=== PATIENT | male | born 1955 | race Caucasian/White ===

== ENCOUNTER → 2019-10-01 07:42 | Outpatient (CLI) | payer OTHER, SELFPAY ==
--- NOTE | 2019-10-01 07:49 | US_ITS ---
STUDY: ABDOMINAL ULTRASOUND - RIGHT UPPER QUADRANT REASON FOR VISIT: Male, 64 years old elevated liver function tests. TECHNIQUE: Ultrasound evaluation of the right upper quadrant was performed with real-time and static grover-scale imaging. TECHNICAL QUALITY: Adequate. COMPARISON: None. FINDINGS: Liver: The liver measures 14.7 cm. There is increased echogenicity consistent with fatty infiltration. The bile ducts are within normal limits. There is hepatic color flow. The direction of portal flow is hepatopetal. There is no demonstrated mass lesion. Gallbladder: Normal distended gallbladder. The gallbladder wall measures 2.0 mm. There is a negative sonographic Keys's sign. There is no pericholecystic fluid. There are multiple echogenic structures within the gallbladder, consistent with multiple gallstones. Is also evidence of multiple small gallbladder polyps. Common Bile Duct (C.B.D.): The common bile duct measures 3.7 mm. Pancreas: Normal size of the head, body and tail of the pancreas. There is normal echogenicity of the pancreas. There is no demonstrated pancreatic mass or cyst. Right Kidney: Normal size of the right kidney. The right kidney measures 11.6 cm x 5.1 cm x 6.1 cm. Normal renal cortex. The right cortex measures 1.9 cm. There is no demonstrated renal mass or cyst. There is no right hydronephrosis. US/Liver IMPRESSION: Fatty infiltration of the liver. Multiple gallstones. Multiple small gallbladder polyps. Electronically Signed: Mauro Florentino, at 9:46 EST , Service support ,
== END ==
PROVIDERS: Family Provider Nurse Practitioner; PCP Nurse Practitioner; Referring Provider Nurse Practitioner; Visit Provider Nurse Practitioner
DX: K76.0 Fatty (change of) liver, not elsewhere classified (principal); K80.20 Calculus of gallbladder without cholecystitis without obstruction; R74.8 Abnormal levels of other serum enzymes
CPT/HCPCS: 76705

== ENCOUNTER 2020-10-30 08:58 | Inpatient (IN) | payer OTHER, SELFPAY ==
[2020-10-30] VITALS (9 sets, daily range): BP systolic 122–152; BP diastolic 75–99; PULSE 67–102; RESP 16–24; TEMP 36.5–38.7; O2SAT 85–99; BMI 27.4; BMI 26.7
--- NOTE | 2020-10-30 09:13 | EKG12_ITS ---
Test Reason : SOB Blood Pressure : / mmHG Vent. Rate : 092 BPM Atrial Rate : 092 BPM P-R Int : 148 ms QRS Dur : 078 ms QT Int : 352 ms P-R-T Axes : 017 -07 016 degrees QTc Int : 435 ms Normal sinus rhythm Minimal voltage criteria for LVH, may be normal variant Borderline ECG Confirmed by BRIT GONSALEZ, DEV ([id number]), movie editor UZMA BRADY ([id number]) on 11/04/2020 9:17:22 AM Referred By: DOROTA Confirmed By:DEV PEREA MD
--- NOTE | 2020-10-30 09:15 | NURSING ---
NO OLD EKGS
--- NOTE | 2020-10-30 09:16 | ED.VIS.GEN ---
History of Present Illness Informant: Patient Onset: Days Narrative: 65 year-old male with PMH HLD, GERD presents with dyspnea on exertion. He is COVID positive and on day 11 of symptoms. He still has a dry cough. Over the last several days he has had worsening dyspnea on exertion and orthopnea. Denies chest pain or shortness of breath at rest. Today he felt warm but is not sure if he had a fever. All his other Covid symptoms have resolved. He saw his PCP who sent him to the ED. He does not not wear oxygen at baseline. He has no cardiopulmonary history. Denies nausea, vomiting, chest pain, abdominal pain, diarrhea, or leg pain or swelling. <Veronica Weaver - Last Filed: 10/30/20 11:47> <Skip Herrera - Last Filed: 10/30/20 12:32> Chief Complaint: Shortness of Breath Past Medical History Past Medical History: - - Hyperlipidemia, GERD Lives: - <Veronica Weaver - Last Filed: 10/30/20 11:47> <Skip Herrera - Last Filed: 10/30/20 12:32> - Allergies and Home Meds Allergies/Adverse Reactions: Allergies Sulfa (Sulfonamide Antibiotics) Allergy (Verified 10/30/20 09:53) PT UNSURE OF REACTION Review of Systems General: Denies: Chills, Fever, Sweats Eyes: Denies: Visual changes - bilaterally, Diplopia ENT: Denies: Rhinorrhea, Sore throat Cardiovascular: Denies: Chest pain, Palpitations, Heart racing Respiratory: Reports: Dyspnea, Cough, Dyspnea on exertion, Orthopnea. Denies: Sputum, Paroxysmal nocturnal dyspnea Gastrointestinal: Denies: Abdominal pain, Nausea, Vomiting, Diarrhea, Melena, Hematochezia Genitourinary: Denies: Dysuria, Hematuria, Frequency Musculoskeletal: Denies: Back pain, Extremity Pain Skin: Denies: Rash, Wounds Neurological: Denies: Headache, Weakness, Numbness <Veronica Weaver - Last Filed: 10/30/20 11:47> Physical Exam Vital Signs/Narrative: Vital Signs Temp Pulse Resp BP Pulse Ox 10/30/20 09:02 101.6 F H 102 H 24 H 127/75 H 85 10/30/20 08:59 101.6 F H 102 H 24 H 127/75 H 85 General: Well nourished, Well developed, No Acute Distress Head: Normocephalic, Atraumatic Eyes: Perrl, EOMI ENT: Moist mucous membranes, No rhinorrhea Neck: Supple, Nontender Cardiovascular: Regular rate, Regular rhythm, No murmurs Respiratory: No distress, Chest nontender, - - scant expiratory wheezing Abdomen: Soft, Nontender, Nondistended, Normal bowel sounds Back: Nontender, Normal Inspection Extremities: Nontender, No edema Skin: Normal color, No rash Neurological: Alert, Oriented x3, Cranial nerves II-XII grossly intact Psychological: Normal affect, Normal Mood <Veronica Weaver - Last Filed: 10/30/20 11:47> Vital Signs/Narrative: Vital Signs Temp Pulse Resp BP Pulse Ox 10/30/20 09:57 86 22 H 123/84 H 94 10/30/20 09:02 101.6 F H 102 H 24 H 127/75 H 85 10/30/20 08:59 101.6 F H 102 H 24 H 127/75 H 85 <Skip Herrera - Last Filed: 10/30/20 12:32> Diagnostic/Tx/Re-eval Clinical Impression(s) from Imaging Studies Chest X-Ray 10/30/20 09:34 IMPRESSION: Infiltrate in the left perihilar region as well as groundglass appearance seen in the right upper lobe and left lung apex. Electronically Signed: Mauro Florentino, at 9:56 EST , Service support , Chest CTA 10/30/20 09:39 IMPRESSION: Pulmonary consolidation seen in the upper lobes as well as the lingular segment of the left upper lobe as well as the right middle lobe and left lower lobes. Electronically Signed: Mauro Florentino, at 10:57 EST , Service support , Laboratory Data 10/30/20 10/30/20 10/30/20 09:00 09:00 09:00 WBC 12.3 H RBC 4.64 Hgb 15.3 Hct 42.6 MCV 91.8 MCH 33.0 H MCHC 35.9 RDW Std Deviation 40.3 RDW Coeff of Panchito 12.0 Plt Count 298 MPV 9.8 Immature Gran % (Auto) 1.000 H Neut % (Auto) 86.2 H Lymph % (Auto) 7.7 L [place] % (Auto) 4.9 Eos % (Auto) 0.0 Baso % (Auto) 0.2 Absolute Neuts (auto) 10.6 H Absolute Lymphs (auto) 0.95 Nucleated RBC % 0 D-Dimer Quant (PE/DVT) 0.77 H* Sodium 136 Potassium 3.8 Chloride 104 Carbon Dioxide 23.0 Anion Gap 9 BUN 20 H Creatinine 1.13 Estim Creat Clear Calc 72.49 Est GFR (MDRD) Af Amer 84 Est GFR (MDRD) Non-Af 69 BUN/Creatinine Ratio 17.7 Glucose 118 H Calcium 8.8 - Rhythm Strip Rhythm Strip: Sinus Rhythm Rate: 92 Ectopy: None - Medical Decision Making 65-year-old male who is Covid positive presents with dyspnea on exertion. He appears well nontoxic. Vital signs show tachycardia in the 100s, respiratory rate 20?24/minute, 85% on room air, and temperature of 101.6F. He was placed on 2 L O2 and is maintaining 92% or above. EKG is normal sinus rhythm with no ischemic changes. Labs show mild leukocytosis with left shift and lymphopenia. CXR shows left sided infiltrate with ground-glass appearance consistent with COVID-19 pneumonia. D-dimer was elevated so CTA obtained and shows extensive diffuse consolidations. No PE. Due to concerning imaging findings, he does not meet criteria for home oxygen. He was given tylenol and decadron. Case discussed with hospitalist who was agreeable to admission and he was transferred to the floor in stable condition. <Veronica Weaver - Last Filed: 10/30/20 11:47> - Medical Decision Making The patient looks well, but he has been requiring oxygen. We did obtain a CTA. There is no evidence of pulmonary embolus, but he does have infiltrates throughout all lung cleary. With his oxygen requirement and dense infiltrates, I do feel that he would benefit from admission. <Skip Herrera - Last Filed: 10/30/20 12:32> ED Disposition <Veronica Weaver - Last Filed: 10/30/20 11:47> <Skip Herrera - Last Filed: 10/30/20 12:32> - Plan for ED Patient: Disposition: Acute Care Hospital [facility] Diagnosis: Hypoxia, Pneumonia due to COVID-19 virus
[2020-10-30 09:31] LABS: Absolute Lymphocyte Count 0.95 X10^3/uL (0.83-4.51); Absolute Neutrophil Count 10.6 X10^3/uL (2.0-7.7); Basophil# 0.02 X10^3/uL; Basophil% 0.2 % (0-1); Hematocrit 42.6 % (40-54); Hemoglobin 15.3 g/dL (13.0-16.5); Lymphocyte # 0.95 X10^3/ul (4.0); Lymphocyte % 7.7 % (19-41); Mean Corp Hgb Conc 35.9 g/dL (32-36); Mean Corpuscular Volume 91.8 fL (80-94); Mean Platelet Vol. 9.8 fl (6.2-12.0); Monocyte% 4.9 % (0-10); NRBC Flagged by Analyzer 0 % (0-5); Neutrophil # 10.63 X10^3/uL (2.7-7.7); Neutrophil % 86.2 % (47-70); Platelet Count 298 K/mm3 (150-450); RBC Distribution Width SD 40.3 fl (35.1-43.9); Red Blood Count 4.64 M/mm3 (4.6-6.2); White Blood Count 12.3 K/mm3 (4.4-11.0)
--- NOTE | 2020-10-30 09:34 | RAD_ITS ---
STUDY: X-RAY CHEST REASON FOR EXAM: Male, 65 years old. COUGH x11 DAYS, COVID + TECHNIQUE: Single AP portable view of the chest. COMPARISON: None. FINDINGS: EKG electrodes are seen. Focal infiltrate is seen in the left perihilar region. Focal area of groundglass appearance is also seen in the left lung apex. Groundglass appearance is seen in the right upper lobe. There is no demonstrated pleural abnormality. Normal size heart. Normal mediastinum and jhony. Normal visualized pulmonary arteries. Normal visualized aortic arch and descending thoracic aorta. There are diffuse degenerative changes of the visualized thoracic spine. Normal visualized ribs, clavicles, and shoulders. There is no demonstrated abnormality of the visualized soft tissue structures of the upper abdomen. RAD/Chest 1 View (Portable) IMPRESSION: Infiltrate in the left perihilar region as well as groundglass appearance seen in the right upper lobe and left lung apex. Electronically Signed: Mauro Florentino, at 9:56 EST , Service support ,
[2020-10-30 09:39] LABS: D-Dimer Quantitative (DVT/PE) 0.77 FEU/ug/m (0.27-0.49)
--- NOTE | 2020-10-30 09:39 | CT_ITS ---
STUDY: CTA CHEST REASON FOR EXAM: Male, 65 years old. HYPOXIA/INCREASED SOB. COVID SYMPTOMS RADIATION DOSAGE (If Supplied By Facility): CTDIvol = ( 12.76 ) mGy, DLP = ( 970.59 ) mGycm TECHNIQUE: The examination was performed with the intravenous administration of IV 100mL Isovue-370. Post-processing of the angiographic images was performed, with multiplanar reformation and 3D reconstruction. Individualized dose optimization techniques were used for this CT. COMPARISON: None. FINDINGS: Normal enhancement of the main pulmonary artery and right and left pulmonary arteries. Normal enhancement of the bilateral peripheral pulmonary arteries. There is no demonstrated pulmonary embolism. Normal thoracic aorta and visualized great vessels. There is no demonstrated aortic dissection. Normal heart and pericardium. Normal mediastinum. Normal hilar regions. Normal visualized trachea and bronchi. The lungs are well expanded. There is evidence of dense consolidation in both upper lobes. Consolidations also seen in the lingular segment of the left upper lobe as well as the right middle lobe and left lower lobes. Normal pleura. Normal chest wall structures. Normal osseous structures. Multiple small layering gallstones. Small hiatal hernia. CT/CTA Chest W/WO Contrast IMPRESSION: Pulmonary consolidation seen in the upper lobes as well as the lingular segment of the left upper lobe as well as the right middle lobe and left lower lobes. Electronically Signed: Mauro Florentino, at 10:57 EST , Service support ,
[2020-10-30 09:40] LABS: Anion Gap 9 (5-15); BUN 20 mg/dL (7-18); BUN/Creat Ratio 17.7 RATIO (10-20); Calcium,Total 8.8 mg/dL (8.5-10.1); Chloride 104 mmol/L (98-107); Creatinine, Serum 1.13 mg/dL (0.70-1.30); EST Glomerular Filtration Rate 69 mL/min (>60); Est Glom Filt Rate - Afr Amer 84 mL/min (>60); Estimated Creatinine Clearance 72.49 ml/min; Glucose 118 mg/dL (74-106); Potassium 3.8 mmol/L (3.5-5.1); Sodium Level 136 mmol/L (136-145)
[2020-10-30] MEDS: Acetaminophen 500 MG Tablet 1000 MG PO (09:50)
[2020-10-30] MEDS: dexAMETHasone 10 MG/ML Vial 6 MG IV (10:55)
--- NOTE | 2020-10-30 11:17 | NURSING ---
MS2 COVID COVID PNEUMONIA RENALDO
[2020-10-30] MEDS: 0.9% Saline Lock 10 ML Syringe IV (14:13)
[2020-10-30 14:56] LABS: AST(SGOT) 43 U/L (15-37); Alanine Aminotransfer ALT/SGPT 51 U/L (16-61); Albumin, Serum 3.4 g/dL (3.2-5.0); Alkaline Phosphatase 67 U/L (45-117); Bilirubin, Direct 0.32 mg/dL (0.00-0.30); Globulin 4.5 g/dL (2.2-4.2); Protein, Total 7.9 g/dL (6.4-8.2)
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
[2020-10-30] MEDS: MELATONIN 3 MG TABLET PO (22:30)
[2020-10-30] MEDS: Benzonatate 100 MG Capsule PO (22:30)
[2020-10-31] VITALS (7 sets, daily range): BP systolic 122–136; BP diastolic 73–88; PULSE 70–93; RESP 16–18; TEMP 36.2–37.7; O2SAT 86–96
[2020-10-31] MEDS: Acetaminophen 325 MG Tablet 650 MG PO ×2 (03:04→21:47)
[2020-10-31 07:26] LABS: ALB/GLOB Ratio 0.7 RATIO (0.9-2.4); AST(SGOT) 34 U/L (15-37); Alanine Aminotransfer ALT/SGPT 42 U/L (16-61); Albumin, Serum 3.1 g/dL (3.2-5.0); Alkaline Phosphatase 65 U/L (45-117); Anion Gap 5 (5-15); BUN 28 mg/dL (7-18); BUN/Creat Ratio 25.2 RATIO (10-20); Calcium,Total 8.5 mg/dL (8.5-10.1); Chloride 105 mmol/L (98-107); Creatinine, Serum 1.11 mg/dL (0.70-1.30); EST Glomerular Filtration Rate 71 mL/min (>60); Est Glom Filt Rate - Afr Amer 86 mL/min (>60); Estimated Creatinine Clearance 73.79 ml/min; Globulin 4.2 g/dL (2.2-4.2); Glucose 115 mg/dL (74-106); Potassium 4.2 mmol/L (3.5-5.1); Protein, Total 7.3 g/dL (6.4-8.2); Sodium Level 137 mmol/L (136-145)
[2020-10-31 07:32] LABS: Absolute Lymphocyte Count 1.04 X10^3/uL (0.83-4.51); Absolute Neutrophil Count 9.6 X10^3/uL (2.0-7.7); Basophil# 0.02 X10^3/uL; Basophil% 0.2 % (0-1); Lymphocyte # 1.04 X10^3/ul (4.0); Lymphocyte % 9.2 % (19-41); Mean Corpuscular Volume 94.3 fL (80-94); Mean Platelet Vol. 9.1 fl (6.2-12.0); Monocyte# 0.59 X10^3/uL; Monocyte% 5.2 % (0-10); NRBC Flagged by Analyzer 0 % (0-5); Neutrophil # 9.55 X10^3/uL (2.7-7.7); Neutrophil % 84.6 % (47-70); Platelet Count 326 K/mm3 (150-450); RBC Distribution Width CV 12.1 % (11.6-14.6); RBC Distribution Width SD 42.1 fl (35.1-43.9); Red Blood Count 4.24 M/mm3 (4.6-6.2); White Blood Count 11.3 K/mm3 (4.4-11.0)
[2020-10-31] MEDS: Aspirin 81 MG TAB.CHEW 162 MG PO (07:45)
[2020-10-31] MEDS: Losartan Potassium 50 MG Tablet PO (07:45)
[2020-10-31] MEDS: dexAMETHasone 4 MG Tablet 6 MG PO (07:45)
[2020-10-31] MEDS: Pantoprazole Sodium 20 MG Tablet PO (07:45)
[2020-10-31] MEDS: Enoxaparin 40 MG/0.4 ML Syringe SC (07:47)
[2020-10-31] MEDS: 0.9% Saline Lock 10 ML Syringe IV (10:39)
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
--- NOTE | 2020-10-31 10:41 | NURSING ---
pt stated that there is no need to call any family for update
--- NOTE | 2020-10-31 14:08 | CASEMGMT ---
ESTEBAN WILDE Assessment Intro role of CM to patient via phone. Pt is awake alert and able to participate in assessment. The patient lives independently with his who is asymptomatic and has not tested for COVID. Patient is aware of quarantine and isolation in the home and RN CM let pt know his dc instructions would address this more on discharge. Patient states he only uses a cane when his back is bothering him, and currently does not need ambulatory DME. Pt states family is able to provide groceries etc while at home. -COVID TESTING- completed @ [facility] Diagnosis: COVID 19 pneumonia Insurance: [employer] PCP: Gissell Pratt NP Pharmacy: [facility] Benefit: yes LNOK: DME: cane only. If oxygen needed, will use [employer]. Script and clinical packet on front of chart with green sheet. HHC: none SNF: none Pt's DC Goal: home DC Goal: anticipate home. Recommend home oxygen testing prior to dc at rest and with ambulation. Maida GUEVARA RN ACM
[2020-10-31] MEDS: Benzonatate 100 MG Capsule PO ×2 (16:24→22:25)
[2020-10-31] MEDS: Atorvastatin Calcium 20 MG Tablet PO (21:47)
[2020-10-31] MEDS: MELATONIN 3 MG TABLET PO (22:26)
[2020-11-01 03:42] VITALS: BP 134/90; PULSE 92; RESP 17; TEMP 36.6; O2SAT 96
[2020-11-01 05:55] LABS: Absolute Lymphocyte Count 0.89 X10^3/uL (0.83-4.51); Absolute Neutrophil Count 9.6 X10^3/uL (2.0-7.7); Basophil# 0.03 X10^3/uL; Basophil% 0.3 % (0-1); Hematocrit 42.2 % (40-54); Hemoglobin 14.9 g/dL (13.0-16.5); Lymphocyte # 0.89 X10^3/ul (4.0); Lymphocyte % 7.8 % (19-41); Mean Corp Hgb Conc 35.3 g/dL (32-36); Mean Corpuscular Hgb 33.4 pg (27.0-32.0); Mean Corpuscular Volume 94.6 fL (80-94); Mean Platelet Vol. 8.8 fl (6.2-12.0); Monocyte# 0.67 X10^3/uL; Monocyte% 5.9 % (0-10); NRBC Flagged by Analyzer 0 % (0-5); Neutrophil # 9.64 X10^3/uL (2.7-7.7); Neutrophil % 84.8 % (47-70); Platelet Count 401 K/mm3 (150-450); RBC Distribution Width CV 12.3 % (11.6-14.6); Red Blood Count 4.46 M/mm3 (4.6-6.2); White Blood Count 11.4 K/mm3 (4.4-11.0)
[2020-11-01 06:27] LABS: ALB/GLOB Ratio 0.7 RATIO (0.9-2.4); AST(SGOT) 39 U/L (15-37); Alanine Aminotransfer ALT/SGPT 41 U/L (16-61); Alkaline Phosphatase 65 U/L (45-117); Anion Gap 5 (5-15); BUN 32 mg/dL (7-18); BUN/Creat Ratio 34.4 RATIO (10-20); Calcium,Total 8.9 mg/dL (8.5-10.1); Chloride 107 mmol/L (98-107); Creatinine, Serum 0.93 mg/dL (0.70-1.30); EST Glomerular Filtration Rate 87 mL/min (>60); Est Glom Filt Rate - Afr Amer 105 mL/min (>60); Estimated Creatinine Clearance 88.08 ml/min; Globulin 4.2 g/dL (2.2-4.2); Glucose 108 mg/dL (74-106); Potassium 4.3 mmol/L (3.5-5.1); Protein, Total 7.2 g/dL (6.4-8.2); Sodium Level 138 mmol/L (136-145)
[2020-11-01 08:34] VITALS: BP 140/83; PULSE 93; RESP 18; TEMP 36.7; O2SAT 88
[2020-11-01 08:36] VITALS: O2SAT 94
[2020-11-01] MEDS: Enoxaparin 40 MG/0.4 ML Syringe SC (08:38)
[2020-11-01] MEDS: dexAMETHasone 4 MG Tablet 6 MG PO (08:38)
[2020-11-01] MEDS: Losartan Potassium 50 MG Tablet PO (08:38)
[2020-11-01] MEDS: Aspirin 81 MG TAB.CHEW 162 MG PO (08:38)
[2020-11-01] MEDS: Pantoprazole Sodium 20 MG Tablet PO ×2 (08:39→09:41)
[2020-11-01 10:42] VITALS: O2SAT 85; O2SAT 87; O2SAT 93
--- NOTE | 2020-11-01 14:27 | DCINST_ITS ---
- Discharge Diagnoses Current Active Problems: Current Active and Chronic Problems Hypoxia (Acute) Pneumonia due to COVID-19 virus (Acute) You will use the following diet at home:: Regular Your food should be the consistency of: Regular Your liquids should be the consistency of: Regular/Thin Discharge Activity: Return to Normal Activity Call your doctor if you observe: Fever of 101 or Higher, Shortness of breath, Di zziness, Fainting spells, Swelling in the ankles, Chest pain, Increased palpitations (irregular heartbeat) Instructions: Coronavirus Disease 2019 (COVID-19): Caring for Yourself or Others, Coronavirus Disease 2019 (COVID-19): Overview Allergies/Adverse Reactions: Allergies Sulfa (Sulfonamide Antibiotics) Allergy (Verified 10/30/20 09:53) PT UNSURE OF REACTION Medications to take at Discharge Aspirin [Aspirin, Baby] 162 mg PO DAILY@0800 10/30/20 Atorvastatin Calcium [Lipitor] 20 mg PO QHS 10/30/20 Benzonatate [Tessalon Perle] 100 mg PO TID PRN PRN 10/30/20 Cholecalciferol (Vitamin D3) [Vitamin D3] 2,000 unit PO DAILY 10/30/20 Olmesartan Medoxomil [Benicar] 20 mg PO DAILY 10/30/20 Pantoprazole Sodium [Protonix] 20 mg PO DAILY 10/30/20 Zinc Gluconate [Zinc] 25 mg PO DAILY 10/30/20 Dexamethasone [Decadron] 6 mg PO DAILY #24 tab 11/01/20 The following prescriptions were given: Dexamethasone [Decadron] 6 mg PO DAILY #24 tab Transmission Status: Pending to [facility]1953 [facility] Primary Care Physician: Gissell Pratt WEATHERIZATION INSTALLER, WEATHERIZATION INSTALLER-C [Primary Care Provider] - Please follow up with your Primary Care Physician in: 3-5 days Test Results: Test results from this visit will be discussed in further detail at your follow- up appointment, if applicable.
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
[2020-11-01 16:00] VITALS: BP 116/75; PULSE 85; RESP 18; TEMP 37; O2SAT 94
== END 2020-11-01 17:20 | disposition home or self-care (01) | DRG 177 ==
LOC: ED 11:48 → MS2 11:51
PROVIDERS: Admitting Provider Family Medicine; Emergency Provider Physician Assistant; PCP Nurse Practitioner; Visit Provider Family Medicine
DX: U07.1 COVID-19 (principal); J12.89 Other viral pneumonia; R09.02 Hypoxemia; I10 Essential (primary) hypertension; E78.5 Hyperlipidemia, unspecified; K21.9 Gastro-esophageal reflux disease without esophagitis; Z79.82 Long term (current) use of aspirin; Z79.899 Other long term (current) drug therapy; Z87.891 Personal history of nicotine dependence
CPT/HCPCS: 36415; 71045; 71275; 80048; 80053; 80076; 85025; 85379; 87449; 93005; 99251; 99285; J7050; Q9967; A4216; G0463

== ENCOUNTER → 2020-11-26 08:38 | Outpatient (CLI) | payer OTHER, SELFPAY ==
[2020-10-30 12:51] VITALS: BMI 26.7
--- NOTE | 2020-11-26 08:39 | ECHOD_ITS ---
Reason For Study: SOB Procedure This was a 2D Doppler, Color Flow transthoracic echocardiogram. Exam performed in department. Left Ventricle Normal LV size. Left ventricular systolic function is normal. The estimated ejection fraction is 55 %. Stage 1 diastolic dysfunction. No regional wall motion abnormalities noted. Right Ventricle Normal RV size. Normal systolic function. Atria Normal left atrium. Normal right atrium. Mitral Valve Normal mitral valve. Tricuspid Valve Normal tricuspid valve. Mild (1+) tricuspid valve insufficiency. Pulmonary artery systolic pressure is 28 mmHg. Aortic Valve Normal aortic valve. Trisinus/trileaflet aortic valve. Pulmonic Valve Normal pulmonic valve. Great Vessels Normal aortic root. The pulmonary artery is normal size. Normal inferior vena cava. Pericardium/Pleural No pericardial effusion. MMode/2D Measurements & Calculations LVIDd: 4.5 cm IVSd: 0.88 cm Ao root diam: 3.2 cm LVIDs: 2.9 cm LVPWd: 0.96 cm RVDd: 4.0 cm FS: 34.8 % LAV(MOD-bp): 58.0 ml LVAd ap4: 30.3 cm2 SV(MOD-sp4): 50.8 ml LAV(MOD-bp) Indexed: 27.7 ml/m2 EDV(MOD-sp4): 89.0 ml LAV(MOD-sp2): 60.6 ml EDV(sp4-el): 91.2 ml LAV(MOD-sp4): 50.2 ml LVAs ap4: 17.2 cm2 ESV(MOD-sp4): 38.2 ml ESV(sp4-el): 38.5 ml EF(MOD-sp4): 57.1 % EF(sp4-el): 57.8 % SV(sp4-el): 52.7 ml LA A4 area: 18.4 cm2 LA dimension(2D): 3.9 cm RA A4 area: 17.3 cm2 Time Measurements MV dec time: 0.20 sec Doppler Measurements & Calculations MV E max rodney: 50.5 cm/sec Lat Peak E' Rodney: 12.2 cm/sec Med Peak E' Rodney: 8.5 cm/sec MV A max rodney: 80.0 cm/sec E/E' lat: 4.1 E/E' med: 5.9 MV E/A: 0.63 Ao V2 max: 119.3 cm/sec LV V1 max: 99.4 cm/sec PA V2 max: 119.2 cm/sec Ao max P.7 mmHg LV V1 max P.0 mmHg PI end-d rodney: 113.8 cm/sec TR max rodney: 248.8 cm/sec TR max P.8 mmHg Interpretation Summary Normal LV size. Left ventricular systolic function is normal. The estimated ejection fraction is 55 %. Stage 1 diastolic dysfunction. Ordering Physician: Gissell Pratt Referring Physician: Gissell Pratt Performed By: Keshia Pearson, KENNY, RVT
== END ==
PROVIDERS: PCP Nurse Practitioner; Referring Provider Nurse Practitioner; Visit Provider Nurse Practitioner
DX: U07.1 COVID-19 (principal)
CPT/HCPCS: 93306

== ENCOUNTER → 2021-03-02 14:18 | Outpatient (CLI) | payer OTHER, SELFPAY ==
[2020-10-30 12:51] VITALS: BMI 26.7
[2021-03-02 15:18] LABS: PSA,Total- Diagnostic 4.17 ng/mL (0.0-4.0)
== END ==
PROVIDERS: PCP Nurse Practitioner; Referring Provider Urology; Visit Provider Urology
DX: R97.20 Elevated prostate specific antigen [PSA] (principal)
CPT/HCPCS: 36415; 84153

== ENCOUNTER → 2022-03-29 | Outpatient (CLI) | payer OTHER, MEDICARE, SELFPAY ==
[2022-03-29 15:16] LABS: PSA,Total- Diagnostic 5.57 ng/mL (0.0-4.0)
== END | disposition home or self-care (01) ==
LOC: LAB 14:05
PROVIDERS: PCP Nurse Practitioner; Visit Provider Urology
DX: R97.20 Elevated prostate specific antigen [PSA] (principal)
CPT/HCPCS: 36415; 84153

== ENCOUNTER → 2022-05-17 | Outpatient (CLI) | payer MEDICARE, SELFPAY ==
--- NOTE | 2022-05-17 | IMM_PTH ---
PATIENT: GUANAKO CHANEL LOC: [facility] U#:[id number] AGE/SX: 66/M ROOM: RE05/17/[address]: Dr. Jb Zayas MD : 1955 BED: DIS: 05/17/2022 SPEC #: [id number] RECD: 05/19/22 13:50 STATUS: WILMA REQ #: [id number] AVELINA: 05/17/22 00:[address]: Jb Zayas DEPT: IMMUNOHISTOCHEMISTRY RECD BY: Raven Petit ENTERED: 05/19/22 13:52 SP TYPE: IMMUNO OTHR DR: Gissell Pratt, HANDLE ASSEMBLER-C Tissues: B - PROSTATE RIGHT C - PROSTATE RIGHT Procedures: 34BE12 (add) P40 (add) 34BE12 (initial) PHYSICIAN & INSTITUTION [place] [address] SPECIMEN INFORMATION: Tissue Source: B - Right prostate, mid, core biopsy, C - Right prostate, base, core biopsy Clinical Info: Elevated PSA Specimen Number: [id number] B & C CPT code: 94695, 45050 x3 METHODOLOGY: Deparaffinized sections of prefer/formalin-fixed tissue or PAP/DQ stained slides are incubated with monoclonal/polyclonal antibodies/oligonucleotide probes. Localization is made via biotin free immunoperoxidase method. Appropriate controls are performed and reacted as expected. Results on target cell population are indicated in the following table: RESULTS: ANTIBODY / CLONE RESULT Block B P40 (BC28) negative 34BE12 (34BE12) negative Block C P40 (BC28) positive 34BE12 (34BE12) positive These tests were developed and their performance characteristics determined by [facility]. They may not have been cleared or approved by the U.S. Food and Drug Administration. The FDA has determined that such clearance or approval is not necessary. The above immunohistochemical/dualISH markers are ordered and reviewed by the Pathologist. INTERPRETATION: B. Right prostate, mid, core biopsy: Focal atypical small acinar proliferation. C. Right prostate, base, core biopsy: Benign prostatic tissue. AM:roseann 05/20/2022
--- NOTE | 2022-05-17 08:00 | PROSBIL_PTH ---
PATIENT: GUANAKO CHANEL [facility]: [facility] U#:[id number] AGE/SX: 66/M ROOM: RE05/17/[address]: Dr. Jb Zayas MD : 1955 BED: DIS: 05/17/2022 SPEC #: [id number] RECD: 05/17/22 16:05 STATUS: WILMA KASSIDY #: [id number] AVELINA: 05/17/22 08:[address]: Jb Zayas DEPT: SURGICAL PATHOLOGY RECD BY: Iron Ramos ENTERED: 05/18/22 07:42 SP TYPE: PROST BX RG DR: Gissell Pratt, VENTILATING ENGINEER-C Tissues: A - PROSTATE RIGHT B - PROSTATE RIGHT C - PROSTATE RIGHT D - PROSTATE LEFT E - PROSTATE LEFT F - PROSTATE LEFT Procedures: PROSTATE BX HEADER OPERATION: Prostate biopsy PRE-OP DIAGNOSIS: Elevated PSA R97.20 TISSUE SUBMITTED: A - Right apex, B - Right mid, C - Right base, D - Left apex, E - Left mid, F - Left base MICROSCOPIC DIAGNOSIS A. Right prostate, apex, core biopsy: Benign prostatic tissue. B. Right prostate, mid, core biopsy: Acute and chronic prostatitis. Focal atypical small acinar proliferation. See comment. C. Right prostate, base, core biopsy: Focal glandular atrophy. See comment. D. Left prostate, apex, core biopsy: Focal glandular atrophy. See comment. E. Left prostate, mid, core biopsy: Focal high-grade prostatic intraepithelial neoplasia (HGPIN). F. Left prostate, base, core biopsy: Focal acute and chronic inflammation. AM:roseann 05/19/2022 COMMENT B & C. Immunohistochemistry ([id number]) supports the above diagnosis. D. Focal low-grade prostatic intraepithelial neoplasia is present. MICROSCOPIC DESCRIPTION Slides are reviewed. GROSS DESCRIPTION A - Received is one container designated prostate, right apex. The specimen consists of two elongated fragments of light lynn-white soft tissue each measuring 1.5 cm in length and 0.1 cm in diameter. The specimen is totally submitted in one cassette. B - Received is one container designated prostate, right mid. The specimen consists of two elongated fragments of light lynn-white soft tissue each measuring 1.5 cm in length and 0.1 cm in diameter. The specimen is totally submitted in one cassette. C - Received is one container designated prostate, right base. The specimen consists of two elongated fragments of light lynn-white soft tissue measuring 1 and 1.5 cm in length and 0.1 cm in diameter. The specimen is totally submitted in one cassette. D - Received is one container designated prostate, left apex. The specimen consists of two elongated fragments of light lynn-white soft tissue each measuring 1.7 cm in length and 0.1 cm in diameter. The specimen is totally submitted in one cassette. E - Received is one container designated prostate, left mid. The specimen consists of two elongated fragments of light lynn-white soft tissue each measuring 1.5 cm in length and 0.1 cm in diameter. The specimen is totally submitted in one cassette. F - Received is one container designated prostate, left base. The specimen consists of two elongated fragments of light lynn-white soft tissue each measuring 1.4 cm in length and 0.1 cm in diameter. The specimen is totally submitted in one cassette. / SJ:rg 05/18/2022 TC:3 CPT: G0146
== END | disposition home or self-care (01) ==
PROVIDERS: PCP Nurse Practitioner; Visit Provider Urology
DX: R97.20 Elevated prostate specific antigen [PSA] (principal)
CPT/HCPCS: 88305; 88341; 88342; G0416

== ENCOUNTER 2024-08-08 12:57 | Emergency (ER) | payer MEDICARE, SELFPAY ==
[2024-08-08 12:57] VITALS: BP 142/89; PULSE 74; RESP 14; TEMP 36.8; O2SAT 100; BMI 26.7
[2024-08-08 15:35] VITALS: BP 149/80; PULSE 73; RESP 18; O2SAT 100
[2024-08-08] MEDS: 0.9% Normal Saline (1000mL) 1,000 ML 999 ML IV (16:35)
[2024-08-08] MEDS: Ondansetron 4 MG/2 ML Vial IV (16:36)
[2024-08-08] MEDS: Ketorolac 15 MG/ML Vial IV (16:37)
--- NOTE | 2024-08-08 16:39 | EX.ED.DYSGE1 ---
HPI History of Present Illness Chief Complaint: Abd Pain [facility] Medical History Hypertension Home Medications ?Medication ?Instructions ?Recorded ?Last Taken ?Type aspirin 81 mg chewable tablet 162 mg PO DAILY@0800 10/30/20 Unknown History atorvastatin 20 mg tablet 20 mg PO QHS 10/30/20 Unknown History cholecalciferol (vitamin D3) 50 2,000 unit PO DAILY 10/30/20 Unknown History mcg (2,000 unit) capsule olmesartan 20 mg tablet 20 mg PO DAILY 10/30/20 Unknown History pantoprazole 20 mg tablet,delayed 20 mg PO DAILY 10/30/20 Unknown History release zinc gluconate 50 mg tablet 25 mg PO DAILY 10/30/20 Unknown History dexamethasone 2 mg tablet 6 mg (3 x 2 mg) PO DAILY #24 tabs 11/01/20 Unknown Rx Allergy/AdvReac Type Severity Reaction Status Date / Time Sulfa (Sulfonamide Allergy PT UNSURE Verified 08/08/24 12:58 Antibiotics) OF REACTION Family History Other Diabetes Social History Smoking Status: Former smoker EXAM Physical Exam Const Vital Signs: 08/08/24 12:57 08/08/24 15:35 08/08/24 17:00 Temperature 98.3 F Temperature Source Temporal Pulse Rate 74 73 72 Respiratory Rate 14 18 18 Blood Pressure 142/89 H 149/80 H 140/78 H Blood Pressure Mean 106 103 98 Pulse Ox 100 100 100 Oxygen Delivery Method Room Air Room Air Room Air 08/08/24 19:00 Temperature Temperature Source Pulse Rate 56 L Respiratory Rate 16 Blood Pressure 149/84 H Blood Pressure Mean 105 Pulse Ox 99 Oxygen Delivery Method Room Air [facility] [place] Medical decision making narrative: HISTORY OF PRESENT ILLNESS: 69-year-old male presents abdominal pain after barium swallow. No trial quad abdominal pain. Denies fever vomiting. Denies urinary complaints. Notes no history abdominal surgeries questions whether he got his appendix out in the past. Notes pain starts afternoon. It is not severely painful when at rest but hurts worse when he moves. REVIEW OF SYSTEMS: Pertinent positives: Abdominal pain Pertinent negatives: Fever, vomiting, urinary complaints PHYSICAL EXAM: Nursing triage notes reviewed, Vital signs reviewed Constitutional: please see mdm HENT: MMM Eyes: Pupils equal round and reactive to light, Extraocular muscles intact Neck: No stridor, no JVD, full neck ROM Lungs: Clear to auscultation, No wheezing or rales. No increased work of breathing, no conversational dyspnea, no accessory muscle use, no nasal flaring. No respiratory distress noted Heart: Regular rate and rhythm, No murmurs, No rubs and No gallops, 2+ distal pulses (radial, femoral, posterior tibial) in all extremities Abdomen: Soft, right lower quadrant TTP but no, rigidity, rebound or guarding, no obvious peritoneal signs, no palpable pulsatile abdominal masses, no auscultated abdominal bruit : No CVAT Extremities: No edema Neuro: No focal neurological deficits, cranial nerves II through XII intact, 5/5 strength in all extremities. Intact sensation to light touch in all extremities, 2+ reflexes bilateral patella tendons. Normal gait. No ataxia. Skin: No rash or lesions noted MEDICAL DECISION MAKING: Chief Complaint: Abdominal pain External records reviewed: Imaging reviewed: Reviewed barium swallow from prior to arrival which showed narrowing of the distal esophagus at the GE junction with trapping of a 12 mm tablet of barium noted. Radiologist recommended endoscopic correlation Factors affecting care: GERD Social determinants of health: none History obtained from others: Consults: none at this time [facility] Narrative: Patient was initially hemodynamically stable, afebrile and nontoxic-appearing. Abdominal exam benign I considered the following differential diagnosis: AAA, small bowel obstruction, abdominal perforation, appendicitis, pancreatitis, hepatobiliary pathology (acute cholecystitis), mesenteric ischemia, pathology (ie nephrolithiasis, pyelonephritis). I obtained a broad lab and imaging workup to further elucidate etiology of patient complaints. Initially treat the patient with IV fluids, Zofran and Toradol for symptomatic control. ALL IMAGES (IF OBTAINED) HAVE BEEN PERSONALLY REVIEWED AND INTERPRETED BY MYSELF. CT scan abdomen pelvis all limited showed no evidence of obvious perforation or obstruction CBC without leukocytosis, severe anemia, no thrombocytopenia. CMP without evidence of acute kidney injury, significant electrolyte abnormality, anion gap, no evidence hepatobiliary pathology. Lipase is wnl indicating no pancreatic inflammation. The synthesis of the patient's history, physical exam, labs images suggest no acute life-limiting etiology. Suspect his pain is likely from distention from barium swallow. The patient was specifically concerned on reassessment about needing surgical removal of barium. I did speak to the surgeon on-call Dr. Martinez about this eventuality. She noted if the barium swallow was done and air in a patient already had a bowel obstruction sometimes requires her surgery however she reviewed the patient CT scan showed no evidence of obstructive symptoms. She stated the patient would not require immediate surgery at this time. I agree with this interpretation based on my review of the CT scan and radiologist report. The patient is appropriate discharge home likely having significant distention and irritation from barium swallow not having life-threatening intra-abdominal pathology. The patient and/or family, caregivers express understanding. The patient and/or family, caregivers agrees with the plan. Shared decision making: I will have a discussion with the patient and or visitors regarding risk/benefits of further testing or admission. They will be made aware of of the risk/benefits inherent in this decision they will be given the opportunity to voice understanding. Total critical care time today provided was at least 0 minutes. This excludes separately billable procedures. Critical care time (if documented) is secondary to the patient having high probability of clinically significant/life threatening deterioration in the patient's condition which required my urgent intervention. Impression: 1. Right lower quadrant abdominal pain 2. Status post barium swallow Dispo: Discharge home This note was generated with [employer] dictation software. It may contain incorrect words, spelling, and punctuation that were not noted in review of the chart prior to signing. Lab Data Labs: Laboratory Results - last 24 hr 08/08/24 16:35 WBC 8.2 RBC 4.56 L Hgb 15.2 Hct 43.7 MCV 95.8 H MCH 33.3 H MCHC 34.8 RDW Std Deviation 44.1 H RDW Coeff of Panchito 12.5 Plt Count 218 MPV 9.7 Immature Gran % (Auto) 0.600 Neut % (Auto) 70.7 H Lymph % (Auto) 16.6 L Surry % (Auto) 8.0 Eos % (Auto) 3.7 Baso % (Auto) 0.4 Absolute Neuts (auto) 5.8 Absolute Lymphs (auto) 1.36 Nucleated RBC % 0 Sodium 140 Potassium 3.7 Chloride 107 Carbon Dioxide 25.0 Anion Gap 8 BUN 12 Creatinine 0.96 Estim Creat Clear Calc 80.83 Est GFR (MDRD) Af Amer 100 Est GFR (MDRD) Non-Af 83 BUN/Creatinine Ratio 12.5 Glucose 95 Calcium 9.7 Total Bilirubin 0.80 Direct Bilirubin 0.26 AST 48 H ALT 63 H Alkaline Phosphatase 64 Total Protein 7.8 Albumin 4.1 Globulin 3.7 Lipase 74 Radiography Diagnostic Testing: Clinical Impression(s) from Imaging Studies Abdomen/Pelvis CT 08/08/24 17:47 IMPRESSION: Study limited by retained enteric contrast and secondary beam hardening artifact. Large bowel not well evaluated. Colonic diverticulosis without gross CT findings of acute diverticulitis. Cholelithiasis without changes of acute cholecystitis. Electronically Signed: Jimmy Naqvi MD at 18:22 EDT , Discharge Plan Triage Chief Complaint: Abd Pain ED Provider: Manny Fox Dx/Rx/DC Orders Instructions: ED Abdominal Pain Unkn Cause Male... Prescriptions: No Action atorvastatin 20 MG tablet 20 mg PO QHS pantoprazole 20 MG tablet 20 mg PO DAILY aspirin 81 MG tablet,chewable 162 mg PO DAILY@0800 zinc gluconate 50 MG tablet 25 mg PO DAILY olmesartan 20 MG tablet 20 mg PO DAILY cholecalciferol (vitamin D3) 2,000 UNIT capsule 2,000 unit PO DAILY dexamethasone 2 MG tablet 6 mg PO DAILY Qty: 24 0RF Primary Care Provider: Citlaly Dutton Referrals: Citlaly Dutton, LYMPHEDEMA THERAPIST-C [Primary Care Provider] - Activity Restrictions/Additional Instructions: Thank you for trusting us with your care today! Please take Tylenol (2 pills, 650 mg), ibuprofen (2 pills, 400 mg) every 6 hours as needed for pain and fever control. Please begin a bowel regiment which includes MiraLAX, Colace and senna. Take this daily to achieve Regular bowel movements if you are having issues with constipation. Please return to the emergency department if your symptoms change or worsen. Please follow with your primary care physician for further outpatient evaluation and management. Print Language: Luxembourgish Disposition Disposition: Home, Self Care
[2024-08-08 17:00] VITALS: BP 140/78; PULSE 72; RESP 18; O2SAT 100
[2024-08-08 17:12] LABS: Absolute Lymphocyte Count 1.36 X10^3/uL (0.83-4.51); Absolute Neutrophil Count 5.8 X10^3/uL (2.0-7.7); Basophil# 0.03 X10^3/uL; Basophil% 0.4 % (0-1); Eosinophils% 3.7 % (0-5); Hematocrit 43.7 % (40-54); Hemoglobin 15.2 g/dL (13.0-16.5); Lymphocyte # 1.36 X10^3/ul (0.83-4.51); Lymphocyte % 16.6 % (19-41); Mean Corp Hgb Conc 34.8 g/dL (32-36); Mean Corpuscular Hgb 33.3 pg (27.0-32.0); Mean Corpuscular Volume 95.8 fL (80-94); Mean Platelet Vol. 9.7 fl (6.2-12.0); Monocyte# 0.66 X10^3/uL; NRBC Flagged by Analyzer 0 % (0-5); Neutrophil % 70.7 % (47-70); Platelet Count 218 K/mm3 (150-450); RBC Distribution Width CV 12.5 % (11.6-14.6); RBC Distribution Width SD 44.1 fl (35.1-43.9); Red Blood Count 4.56 M/mm3 (4.6-6.2); White Blood Count 8.2 K/mm3 (4.4-11.0)
[2024-08-08 17:17] LABS: AST(SGOT) 48 U/L (15-37); Alanine Aminotransfer ALT/SGPT 63 U/L (16-61); Albumin, Serum 4.1 g/dL (3.2-5.0); Alkaline Phosphatase 64 U/L (45-117); Anion Gap 8 (5-15); BUN 12 mg/dL (7-18); BUN/Creat Ratio 12.5 RATIO (10-20); Bilirubin, Direct 0.26 mg/dL (0.00-0.30); Calcium,Total 9.7 mg/dL (8.5-10.1); Chloride 107 mmol/L (98-107); Creatinine, Serum 0.96 mg/dL (0.70-1.30); EST Glomerular Filtration Rate 83 mL/min (>60); Est Glom Filt Rate - Afr Amer 100 mL/min (>60); Estimated Creatinine Clearance 80.83 ml/min; Globulin 3.7 g/dL (2.2-4.2); Glucose 95 mg/dL (74-106); Lipase 74 U/L (13-75); Potassium 3.7 mmol/L (3.5-5.1); Protein, Total 7.8 g/dL (6.4-8.2); Sodium Level 140 mmol/L (136-145)
--- NOTE | 2024-08-08 17:47 | CT_ITS ---
INDICATION: Abdominal pain EXAMINATION: CT ABDOMEN AND PELVIS WITHOUT CONTRAST - CT Abdomen And Pelvis W/O Contrast Injection TECHNIQUE: Helically acquired images were obtained of the abdomen and pelvis without oral or IV contrast. A radiation dose optimization technique was used for this scan. IV Contrast dosage and agent: None. Oral contrast: None. COMPARISON: None. FINDINGS: LOWER CHEST: Lung bases are clear. No cardiomegaly or pericardial effusion. LIVER: Homogeneous. No focal mass. GALLBLADDER AND BILIARY TREE: Calcified gallstones. No gallbladder distension or wall edema. No intra- or extrahepatic biliary ductal dilation. PANCREAS: No focal cystic or solid mass. SPLEEN: Normal size without focal cystic or solid mass. ADRENAL GLANDS: No nodules. KIDNEYS AND URETERS: No nephrolithiasis or hydronephrosis. PERITONEUM: No ascites or free air. BOWEL: Beam hardening artifact from retained enteric contrast in the large bowel from prior upper GI. No abnormal small bowel distention. Evaluation of the large bowel limited by the retained enteric contrast. Multiple colonic diverticula without gross changes of acute diverticulitis. LYMPH NODES: No enlarged mesenteric or retroperitoneal lymph nodes. VESSELS: Aorta is non-dilated. URINARY BLADDER: Unremarkable. REPRODUCTIVE ORGANS: No pelvic masses. ABDOMINAL WALL: No discrete abdominal or pelvic wall hernia. BONES: No acute or aggressive abnormality. CT/Abdomen/Pelvis without Cont IMPRESSION: Study limited by retained enteric contrast and secondary beam hardening artifact. Large bowel not well evaluated. Colonic diverticulosis without gross CT findings of acute diverticulitis. Cholelithiasis without changes of acute cholecystitis. Electronically Signed: Jimmy Naqvi MD at 18:22 EDT ,
[2024-08-08 19:00] VITALS: BP 149/84; PULSE 56; RESP 16; O2SAT 99
[2024-08-08 20:29] VITALS: BP 152/90; PULSE 76; RESP 18; TEMP 36.3; O2SAT 99
== END 2024-08-08 20:30 | disposition home or self-care (01) ==
PROVIDERS: Emergency Provider Emergency Medicine; PCP Nurse Practitioner Family; Visit Provider Emergency Medicine
DX: R10.31 Right lower quadrant pain (principal); R13.10 Dysphagia, unspecified; Z87.891 Personal history of nicotine dependence
CPT/HCPCS: 74176; 74246; 80048; 80076; 83690; 85025; 96361; 96374; 96375; 99283; J2405

== ENCOUNTER → 2024-08-08 | Outpatient (CLI) | payer MEDICARE, SELFPAY ==
--- NOTE | 2024-08-08 08:22 | RAD_ITS ---
STUDY: AIR CONTRAST ESOPHAGRAM AND UPPER GI SERIES REASON FOR EXAM: Male, 69 years old. BARIUM SWALLOW AND UPPER GASTROINTESTINAL SERIES -- Difficulty swallowing solids FLUOROSCOPY TIME (if supplied): (55 seconds) minutes/seconds. 92.3 mGy. 91 fluoroscopic images were obtained. TECHNIQUE: SINGLE CONTRAST AND AIR CONTRAST FLUOROSCOPIC IMAGES. COMPARISON: None. FINDINGS: The cervical esophagus demonstrates normal motility without aspiration. There is no stricture or extrinsic mass effect. No intraluminal polypoid mass is identified. The thoracic esophagus distends well without stricture or mucosal fold thickening. No mucosal ulcerations are identified. There is no extrinsic mass effect. There is narrowing at the gastroesophageal junction. No evidence of gastroesophageal reflux. The patient ingested a 12 mm tablet of barium. The tablet is trapped at the gastroesophageal junction. Endoscopic correlation recommended. No hiatal hernia or gastroesophageal reflux was identified. The stomach distends well without mucosal fold thickening or mucosal ulceration. There is no intraluminal mass. The duodenal bulb is freely distensible without deformity or ulceration. The duodenal sweep is normal in position and caliber. Incidental note is made of a 3.5 cm x 2.5 cm duodenal diverticulum in the second portion of the duodenum. RAD/Upper GI w/BA Swallow IMPRESSION: Narrowing of the distal esophagus at the gastroesophageal junction with trapping of the 12 mm tablet of barium. Endoscopic correlation recommended. Incidental note is made of a 3.5 cm x 2.5 cm diverticulum in the second portion of the duodenum. Electronically Signed: Mauro Florentino MD at 13:36 EDT ,
== END | disposition home or self-care (01) ==
PROVIDERS: PCP Nurse Practitioner Family; Referring Provider Nurse Practitioner Family; Visit Provider Nurse Practitioner Family
DX: R13.10 Dysphagia, unspecified (principal)
CPT/HCPCS: 74246

== ENCOUNTER → 2024-09-19 | Outpatient (CLI) | payer MEDICARE, SELFPAY ==
[2024-09-19 12:48] LABS: ALB/GLOB Ratio 1.1 RATIO (0.9-2.4); AST(SGOT) 43 U/L (15-37); Alanine Aminotransfer ALT/SGPT 46 U/L (16-61); Albumin, Serum 3.9 g/dL (3.2-5.0); Alkaline Phosphatase 49 U/L (45-117); Anion Gap 4 (5-15); BUN 20 mg/dL (7-18); BUN/Creat Ratio 20.2 RATIO (10-20); Calcium,Total 9.2 mg/dL (8.5-10.1); Chloride 108 mmol/L (98-107); Creatinine, Serum 0.99 mg/dL (0.70-1.30); EST Glomerular Filtration Rate 80 mL/min (>60); Est Glom Filt Rate - Afr Amer 97 mL/min (>60); Globulin 3.4 g/dL (2.2-4.2); Glucose 103 mg/dL (74-106); Potassium 4.3 mmol/L (3.5-5.1); Protein, Total 7.3 g/dL (6.4-8.2); Sodium Level 139 mmol/L (136-145)
== END | disposition home or self-care (01) ==
LOC: LAB 10:49
PROVIDERS: PCP Nurse Practitioner Family; Referring Provider Internal Medicine Gastroenterology; Visit Provider Internal Medicine Gastroenterology
DX: R74.01 Elevation of levels of liver transaminase levels (principal)
CPT/HCPCS: 36415; 80053

== ENCOUNTER → 2024-09-27 | Outpatient (CLI) | payer MEDICARE, SELFPAY ==
[2024-09-27 10:54] LABS: AST(SGOT) 20 U/L (15-37); Alanine Aminotransfer ALT/SGPT 39 U/L (16-61); Albumin, Serum 4.3 g/dL (3.2-5.0); Alkaline Phosphatase 53 U/L (45-117); Ferritin 200 ng/mL (26-388); Globulin 3.4 g/dL (2.2-4.2); Iron 148 ug/dL (65-175); Iron Binding Capacity,Total 345 ug/dL (250-450); PERCENT IRON SATURATION 42.9 % (15.0-55.0); Protein, Total 7.7 g/dL (6.4-8.2)
[2024-09-28 14:09] LABS: ANTINUCLEAR ANTIBODIES DIRECT Negative (Negative); Anti-Mitochondrial AB <20.0 Units (0.0-20.0)
[2024-09-30 17:08] LABS: Anti-Smooth Muscle ABS 7 Units (0-19); Ceruloplasmin 21.6 mg/dL (16.0-31.0); Deamidated Gliadin IgA 27 units (0-19); Deamidated Gliadin IgG 2 units (0-19); Endomysial Antibody IgA Negative (Negative); HEPATITIS B SURFACE AG Negative (Negative); Hep C Antibodies Non Reactive (Non Reactive); Hepatitis A IgM Antibody Negative (Negative); Hepatitis B Core AB IgM Negative (Negative); Immunoglobulin A 347 mg/dL (61-437); t-Transglutaminase IgA <2 U/mL (0-3)
[2024-10-01 02:07] LABS: Alpha Antitrypsin Serum 92 mg/dL (101-187)
== END | disposition home or self-care (01) ==
LOC: LAB 09:06
PROVIDERS: PCP Nurse Practitioner Family; Referring Provider Internal Medicine Gastroenterology; Visit Provider Internal Medicine Gastroenterology
DX: R74.01 Elevation of levels of liver transaminase levels (principal)
CPT/HCPCS: 36415; 80074; 80076; 82103; 82390; 82728; 82784; 83516; 83540; 83550; 84443; 86038; 86255

== ENCOUNTER → 2024-09-30 | Outpatient (CLI) | payer MEDICARE, SELFPAY ==
--- NOTE | 2024-09-30 07:10 | US_ITS ---
STUDY: ABDOMINAL ULTRASOUND - RIGHT UPPER QUADRANT REASON FOR VISIT: Male, 69 years old ELEVATED LFTS TECHNIQUE: Ultrasound evaluation of the right upper quadrant was performed with real-time and static grover-scale imaging. TECHNICAL QUALITY: Adequate. COMPARISON: None. FINDINGS: Liver: The liver measures 14.4 cm. There is normal echogenicity of the liver. The bile ducts are within normal limits. There is hepatic color flow. The direction of portal flow is hepatopetal. There is no demonstrated mass lesion. Gallbladder: Normal distended gallbladder. The gallbladder wall measures 2 mm. There is a negative sonographic Keys''s sign. There is no pericholecystic fluid. There is a solitary echogenic gallstone within the gallbladder. Common Bile Duct (C.B.D.): The common bile duct measures 6 mm. Pancreas: Normal size of the head, body and tail of the pancreas. There is normal echogenicity of the pancreas. There is no demonstrated pancreatic mass or cyst. Right Kidney: Normal size of the right kidney. The right kidney measures 11.3 cm. Normal renal cortex. The right cortex measures 2.1 cm. There is no demonstrated renal mass or cyst. There is no right hydronephrosis. US/Abdomen Limited IMPRESSION: Cholelithiasis. Electronically Signed: Bryan Peña MD at 12:16 EST ,
== END | disposition home or self-care (01) ==
PROVIDERS: PCP Nurse Practitioner Family; Referring Provider Internal Medicine; Visit Provider Internal Medicine
DX: R74.01 Elevation of levels of liver transaminase levels (principal)
CPT/HCPCS: 76705

== ENCOUNTER → 2024-10-03 | Outpatient (CLI) | payer MEDICARE, SELFPAY ==
[2024-10-03 09:36] LABS: Ferritin 141 ng/mL (26-388); Iron 76 ug/dL (65-175); Iron Binding Capacity,Total 311 ug/dL (250-450); PERCENT IRON SATURATION 24.4 % (15.0-55.0)
[2024-10-04 14:10] LABS: ANTINUCLEAR ANTIBODIES DIRECT Negative (Negative); Alpha Antitrypsin Serum 88 mg/dL (101-187); Anti-Mitochondrial AB <20.0 Units (0.0-20.0)
[2024-10-04 16:11] LABS: Anti-Smooth Muscle ABS 5 Units (0-19); Ceruloplasmin 21.1 mg/dL (16.0-31.0); Deamidated Gliadin IgA 30 units (0-19); Deamidated Gliadin IgG 2 units (0-19); Endomysial Antibody IgA Negative (Negative); HEPATITIS B SURFACE AG Negative (Negative); Hep C Antibodies Non Reactive (Non Reactive); Hepatitis A IgM Antibody Negative (Negative); Hepatitis B Core AB IgM Negative (Negative); Immunoglobulin A 312 mg/dL (61-437); t-Transglutaminase IgA <2 U/mL (0-3)
== END | disposition home or self-care (01) ==
PROVIDERS: PCP Nurse Practitioner Family; Referring Provider Internal Medicine; Visit Provider Internal Medicine
DX: R74.01 Elevation of levels of liver transaminase levels (principal)
CPT/HCPCS: 36415; 80074; 82103; 82390; 82728; 82784; 83516; 83540; 83550; 84443; 86038; 86255

== ENCOUNTER 2024-10-24 11:05 | Outpatient (RCR) | payer MEDICARE, SELFPAY | END 2024-10-24 14:37 | disposition home or self-care (01) | LOC: PT 11:05 | PROVIDERS: PCP Nurse Practitioner Family; Referring Provider Nurse Practitioner Family; Visit Provider Nurse Practitioner Family | DX: M76.30 Iliotibial band syndrome, unspecified leg (principal); M25.562 Pain in left knee | CPT/HCPCS: 97110; 97162 ==

== ENCOUNTER → 2024-10-25 | Outpatient (CLI) | payer MEDICARE, SELFPAY ==
[2024-10-25 10:31] LABS: Absolute Lymphocyte Count 1.66 X10^3/uL (0.83-4.51); Absolute Neutrophil Count 3.8 X10^3/uL (2.0-7.7); Basophil# 0.06 X10^3/uL; Basophil% 0.9 % (0-1); Eosinophil# 0.39 X10^3/uL; Hematocrit 45.1 % (40-54); Lymphocyte # 1.66 X10^3/ul (0.83-4.51); Lymphocyte % 25.5 % (19-41); Mean Corp Hgb Conc 35.5 g/dL (32-36); Mean Corpuscular Hgb 33.3 pg (27.0-32.0); Mean Corpuscular Volume 93.8 fL (80-94); Mean Platelet Vol. 9.4 fl (6.2-12.0); Monocyte# 0.56 X10^3/uL; Monocyte% 8.6 % (0-10); NRBC Flagged by Analyzer 0 % (0-5); Neutrophil # 3.81 X10^3/uL (2.7-7.7); Neutrophil % 58.7 % (47-70); Platelet Count 211 K/mm3 (150-450); RBC Distribution Width CV 12.8 % (11.6-14.6); RBC Distribution Width SD 44.1 fl (35.1-43.9); Red Blood Count 4.81 M/mm3 (4.6-6.2); White Blood Count 6.5 K/mm3 (4.4-11.0)
[2024-10-25 11:35] LABS: ALB/GLOB Ratio 1.2 RATIO (0.9-2.4); AST(SGOT) 35 U/L (15-37); Alanine Aminotransfer ALT/SGPT 52 U/L (16-61); Albumin, Serum 4.1 g/dL (3.2-5.0); Alkaline Phosphatase 66 U/L (45-117); Anion Gap 3 (5-15); BUN 11 mg/dL (7-18); BUN/Creat Ratio 10.4 RATIO (10-20); Calcium,Total 9.5 mg/dL (8.5-10.1); Chloride 106 mmol/L (98-107); Creatinine, Serum 1.06 mg/dL (0.70-1.30); EST Glomerular Filtration Rate 74 mL/min (>60); Est Glom Filt Rate - Afr Amer 89 mL/min (>60); Globulin 3.3 g/dL (2.2-4.2); Glucose 113 mg/dL (74-106); Potassium 4.2 mmol/L (3.5-5.1); Protein, Total 7.4 g/dL (6.4-8.2); Sodium Level 140 mmol/L (136-145)
== END | disposition home or self-care (01) ==
PROVIDERS: PCP Nurse Practitioner Family
DX: K21.9 Gastro-esophageal reflux disease without esophagitis (principal); E88.01 Alpha-1-antitrypsin deficiency; R13.10 Dysphagia, unspecified; R74.01 Elevation of levels of liver transaminase levels
CPT/HCPCS: 36415; 80053; 85025

== ENCOUNTER → 2025-02-04 | Outpatient (CLI) | payer MEDICARE, SELFPAY ==
[2025-02-04 09:23] LABS: Absolute Lymphocyte Count 1.43 X10^3/uL (0.83-4.51); Basophil# 0.06 X10^3/uL; Basophil% 0.8 % (0-1); Eosinophil# 0.36 X10^3/uL; Eosinophils% 4.9 % (0-5); Hemoglobin 15.1 g/dL (13.0-16.5); Lymphocyte # 1.43 X10^3/ul (0.83-4.51); Lymphocyte % 19.5 % (19-41); Mean Corp Hgb Conc 35.1 g/dL (32-36); Mean Corpuscular Hgb 32.5 pg (27.0-32.0); Mean Corpuscular Volume 92.5 fL (80-94); Mean Platelet Vol. 8.9 fl (6.2-12.0); Monocyte# 0.47 X10^3/uL; Monocyte% 6.4 % (0-10); NRBC Flagged by Analyzer 0 % (0-5); Neutrophil # 4.98 X10^3/uL (2.7-7.7); Neutrophil % 68.1 % (47-70); Platelet Count 242 K/mm3 (150-450); RBC Distribution Width CV 12.6 % (11.6-14.6); RBC Distribution Width SD 42.5 fl (35.1-43.9); Red Blood Count 4.65 M/mm3 (4.6-6.2); White Blood Count 7.3 K/mm3 (4.4-11.0)
[2025-02-04 09:50] LABS: ALB/GLOB Ratio 1.6 RATIO (0.9-2.4); AST(SGOT) 31 U/L (<=37); Alanine Aminotransfer ALT/SGPT 41 U/L (<=46); Albumin, Serum 4.5 g/dL (3.4-4.8); Alkaline Phosphatase 53 U/L (40-129); Anion Gap 12 (5-15); BUN 11 mg/dL (4-19); BUN/Creat Ratio 10.3 RATIO (10-20); Calcium,Total 9.5 mg/dL (7.6-11.0); Carbon Dioxide 24.3 mmol/L (21.0-32.0); Chloride 106 mmol/L (98-108); Creatinine, Serum 1.03 mg/dL (0.70-1.20); EST Glomerular Filtration Rate 79 (>60); Globulin 2.8 g/dL (2.2-4.2); Glucose 114 mg/dL (70-99); Potassium 4.4 mmol/L (3.3-5.1); Protein, Total 7.3 g/dL (5.9-8.4); Sodium Level 142 mmol/L (133-145); Total Bilirubin 0.73 mg/dL (0.00-1.30)
[2025-02-05 08:09] LABS: Alpha Antitrypsin Serum 93 mg/dL (101-187)
== END | disposition home or self-care (01) ==
LOC: LAB 09:05
PROVIDERS: PCP Nurse Practitioner Family
DX: K21.9 Gastro-esophageal reflux disease without esophagitis (principal); E88.01 Alpha-1-antitrypsin deficiency; R13.10 Dysphagia, unspecified; R74.01 Elevation of levels of liver transaminase levels
CPT/HCPCS: 36415; 80053; 82103; 85025

== ENCOUNTER → 2025-02-21 | Outpatient (CLI) | payer MEDICARE, SELFPAY ==
[2025-02-22 08:09] LABS: Alpha Antitrypsin Serum 83 mg/dL (101-187)
== END | disposition home or self-care (01) ==
PROVIDERS: PCP Nurse Practitioner Family; Referring Provider Internal Medicine Gastroenterology; Visit Provider Internal Medicine Gastroenterology
DX: R74.01 Elevation of levels of liver transaminase levels (principal); E88.01 Alpha-1-antitrypsin deficiency
CPT/HCPCS: 36415; 82103

== ENCOUNTER → 2025-03-03 | Outpatient (CLI) | payer MEDICARE, SELFPAY | END | disposition home or self-care (01) | PROVIDERS: PCP Nurse Practitioner Family; Referring Provider Internal Medicine; Visit Provider Internal Medicine Gastroenterology | DX: R74.01 Elevation of levels of liver transaminase levels (principal); E88.01 Alpha-1-antitrypsin deficiency ==

== ENCOUNTER → 2025-07-10 | Outpatient (CLI) | payer MEDICARE, SELFPAY ==
[2025-07-10 10:53] LABS: PSA,Total- Diagnostic 4.52 ng/mL (0.00-4.00)
== END | disposition home or self-care (01) ==
LOC: LAB 09:39
PROVIDERS: PCP Nurse Practitioner Family; Referring Provider Urology; Visit Provider Urology
DX: R97.20 Elevated prostate specific antigen [PSA] (principal)
CPT/HCPCS: 36415; 84153